=== PATIENT | female | born 2005 ===

== ENCOUNTER 2024-11-23 12:09 | Outpatient (CLI) | payer OTHER, SELFPAY ==
--- NOTE | ~2024-11-23 | US_ITS ---
EXAM: PELVIC ULTRASOUND HISTORY: lower abd pain unspecified COMPARISON: None FINDINGS: UTERUS: 8.8 x 4.1 x 3.5 cm. The uterus is anteverted and anteflexed. The endometrial complex measures 3 mm. Intrauterine device within the endometrial complex. RIGHT OVARY: Surgically absent LEFT OVARY: The left ovary is unremarkable in echogenicity and size measuring 3.9 x 2.9 x 2.8 cm Dopplerable flow is identified. No free fluid is identified within the pelvis. IMPRESSION: Intrauterine device in good position. No additional abnormality is appreciated. Reviewed, dictated and finalized at location A.
== END 2024-11-23 12:10 | disposition home or self-care (01) ==
PROVIDERS: PCP Nurse Practitioner; Visit Provider Nurse Practitioner
DX: R10.30 Lower abdominal pain, unspecified (principal); Z97.5 Presence of (intrauterine) contraceptive device
CPT/HCPCS: 76830; 76856